=== PATIENT | female | born 1945 | race Caucasian/White ===

== ENCOUNTER → 2019-12-17 13:44 | Outpatient (BNVA) | payer MEDICARE, BC, SELFPAY | PROVIDERS: PCP Registered Nurse; Visit Provider Internal Medicine Rheumatology | DX: M05.9 Rheumatoid arthritis with rheumatoid factor, unspecified (principal); Z11.59 Encounter for screening for other viral diseases; Z79.899 Other long term (current) drug therapy; Z11.1 Encounter for screening for respiratory tuberculosis; M19.90 Unspecified osteoarthritis, unspecified site; R76.8 Other specified abnormal immunological findings in serum; M79.7 Fibromyalgia; Z72.89 Other problems related to lifestyle | CPT/HCPCS: 99204 ==

== ENCOUNTER 2019-12-17 16:25 | Outpatient (CLI) | payer MEDICARE, BC, SELFPAY ==
--- NOTE | 2019-12-17 16:39 | XR_ITS ---
WS: [id number] XR foot LT min 3V* [id number] REASON FOR EXAM: inflammatory arthritis FINDINGS: Spurring along the medial aspects of the first cuneiform. The remaining phalanges metatarsals and tarsals appear to be essentially normal. There is a calcaneal spur present and there is spurring off the superior aspects of the talus as well as the cuneiforms. XR/XR foot LT min 3V* [id number] IMPRESSION: Calcaneal spur Osteoarthritic changes.
--- NOTE | 2019-12-17 16:39 | XR_ITS ---
WS: [id number] XR chest 2V* [id number] REASON FOR EXAM: inflammatory arthritis FINDINGS: A partially calcified nodule seen in the right upper lung. The heart is not enlarged. There is arteriosclerotic changes. There is degenerated of arthritis throughout the thoracic spine. The lung prescott show no pneumonia, pleural effusion, pulmonary edema, or mass effect. XR/XR chest 2V* [id number] IMPRESSION: Small calcified granuloma right upper lung Osteoarthritic changes Arteriosclerotic changes.
--- NOTE | 2019-12-17 16:39 | XR_ITS ---
WS: [id number] XR hand LT min 3V* [id number] REASON FOR EXAM: inflammatory arthritis FINDINGS: The distal interphalangeal joints show degenerate changes. There is spurring off the distal fifth metacarpal. There is spurring also seen off the proximal and middle second phalanx. As well as the first phalanx. XR/XR hand LT min 3V* [id number] IMPRESSION: Osteoarthritic changes of the hand.
--- NOTE | 2019-12-17 16:39 | XR_ITS ---
WS: [id number] XR hand RT min 3V* [id number] REASON FOR EXAM: inflammatory arthritis FINDINGS: Spurring is noted off the distal fifth metacarpal. There is mild degenerate changes of the distal interphalangeal joints. There is no destructive changes seen. There is mild degenerate changes of the middle and proximal fourth and fifth phalanges. XR/XR hand RT min 3V* [id number] IMPRESSION: Osteoarthritic changes of the hand.
--- NOTE | 2019-12-17 16:39 | XR_ITS ---
WS: [id number] XR foot RT min 3V* [id number] REASON FOR EXAM: inflammatory arthritis FINDINGS: Degenerate changes of the distal interphalangeal joints. There is spurring off the tarsal navicular superiorly. There is spurring off the calcaneus. There is no definite fractures seen. XR/XR foot RT min 3V* [id number] IMPRESSION: Osteoarthritic changes of the foot Calcaneal spur
[2019-12-17 18:36] LABS: Basophils % 0.3 %; Hematocrit 38.8 % (37.0-47.0); Hemoglobin 12.5 g/dL (11.5-15.3); Lymphocytes # 1.7 10^3/uL (0.8-4.8); Lymphocytes % 24.3 %; Mean Corpuscular HGB Conc 32.2 g/dL (30.0-36.0); Mean Corpuscular Hemoglobin 30.3 pg (28.0-34.0); Mean Corpuscular Volume 94.2 fL (81-99); Mean Platelet Volume 10.5 fL (7.4-10.4); Monocytes # 0.7 10^3/uL (0.2-0.9); Monocytes % 10.6 %; Neutrophils # 4.4 10^3/uL (1.8-7.7); Neutrophils % 64.5 %; Nucleated Red Blood Cells % 0 %; Platelet Count 287 10^3/cmm (130-400); Red Blood Count 4.12 10^6/uL (4.1-5.3); Red Cell Distribution Width 14.5 % (12.1-15.1); White Blood Count 6.8 10^3/uL (4.0-10.0)
[2019-12-17 19:37] LABS: Erythrocyte Sedimentation Rate 56 mm/hr (0-15)
[2019-12-17 19:53] LABS: Hepatitis B Core AB, Total Non-Reactive (Nonreactive); Hepatitis B Surface Antigen Non-Reactive (Nonreactive)
[2019-12-17 20:04] LABS: Alanine Aminotransferase 28 U/L (0-33); Albumin Level 4.3 g/dL (3.5-5.2); Alkaline Phosphatase 70 IU/L (35-105); Globulin 5.6 g/dL (1.3-4.6); Total Bilirubin 0.5 mg/dL (0.15-1.2); Total Protein 9.9 g/dL (6.6-8.7); Uric Acid 5.4 mg/dL (2.4-5.7)
[2019-12-18 03:17] LABS: Aspartate Amino Transferase 29 U/L (0-32); C Reactive Protein 3.8 mg/L (0.0-4.9)
[2019-12-18 05:05] LABS: 25 Hydroxy Vitamin D 37 ng/mL (30-100)
[2019-12-18 06:59] LABS: Complement C3 134 mg/dL (90-180)
[2019-12-18 08:17] LABS: Hepatitis C Virus Antibody Non-Reactive (Nonreactive)
[2019-12-19 13:51] LABS: Cyclic Citrullinated Peptide <16 UNITS
[2019-12-20 11:05] LABS: COMPLEMENT, TOTAL (CH50) >60 U/mL (31-60)
[2019-12-20 11:32] LABS: COMPLEMENT COMPONENT C3C 147 mg/dL (83-193); COMPLEMENT COMPONENT C4C 14 mg/dL (15-57)
[2019-12-20 12:56] LABS: Quantiferon Nil 0.04 IU/mL; Quantiferon TB Gold NEGATIVE (NEGATIVE)
[2019-12-21 12:57] LABS: ANA PATTERN Nuclear, Speckled; ANA SCREEN, IFA POSITIVE (NEGATIVE)
[2019-12-21 15:46] LABS: CENTROMERE B ANTIBODY <1.0 NEG AI (<1.0 NEG); JO-1 ANTIBODY <1.0 NEG AI (<1.0 NEG); RNP ANTIBODY <1.0 NEG AI (<1.0 NEG); SCL-70 ANTIBODY <1.0 NEG AI (<1.0 NEG); SJOGREN'S ANTIBODY (SS-A) >8.0 POS AI (<1.0 NEG); SM ANTIBODY <1.0 NEG AI (<1.0 NEG)
[2019-12-25 12:16] LABS: THYROID PEROXIDASE ANTIBODIES 1 IU/mL (<9)
[2019-12-28 07:26] LABS: DNA AB (DS) CRITHIDIA,IFA NEGATIVE (NEGATIVE)
== END 2019-12-17 16:26 | disposition home or self-care (01) ==
LOC: RAD 16:30
PROVIDERS: PCP Registered Nurse; Visit Provider Internal Medicine Rheumatology
DX: M19.90 Unspecified osteoarthritis, unspecified site (principal); Z11.59 Encounter for screening for other viral diseases; Z79.899 Other long term (current) drug therapy; R76.8 Other specified abnormal immunological findings in serum; I25.10 Atherosclerotic heart disease of native coronary artery without angina pectoris; M77.32 Calcaneal spur, left foot; M19.072 Primary osteoarthritis, left ankle and foot; M77.31 Calcaneal spur, right foot; M19.071 Primary osteoarthritis, right ankle and foot; M19.041 Primary osteoarthritis, right hand; M19.042 Primary osteoarthritis, left hand; M05.9 Rheumatoid arthritis with rheumatoid factor, unspecified; Z11.1 Encounter for screening for respiratory tuberculosis; M79.7 Fibromyalgia; Z72.89 Other problems related to lifestyle
CPT/HCPCS: 36415; 71046; 73130; 73630; 80076; 81001; 82306; 82565; 82570; 84156; 84550; 85025; 85651; 86140; 86160; 86480; 86704; 86803; 87340; 99204

== ENCOUNTER → 2020-02-18 09:30 | Outpatient (BNVA) | payer MEDICARE, BC, SELFPAY | PROVIDERS: PCP Registered Nurse; Visit Provider Internal Medicine Rheumatology | DX: M19.90 Unspecified osteoarthritis, unspecified site (principal); Z79.899 Other long term (current) drug therapy | CPT/HCPCS: 36415; 80076; 82565; 85025; 85651; 86140 ==

== ENCOUNTER → 2020-04-07 09:50 | Outpatient (BNVA) | payer MEDICARE, BC, SELFPAY | PROVIDERS: PCP Registered Nurse; Visit Provider Internal Medicine Rheumatology | DX: M05.79 Rheumatoid arthritis with rheumatoid factor of multiple sites without organ or systems involvement (principal); R76.8 Other specified abnormal immunological findings in serum; Z79.899 Other long term (current) drug therapy; M79.7 Fibromyalgia | CPT/HCPCS: 81001; 82570; 84156; 99214 ==